=== PATIENT | female | born 1970 | race Caucasian/White ===

== ENCOUNTER → 2016-05-21 | Outpatient (CLI) | payer BC | END | disposition home or self-care (01) | LOC: MW.LAB 09:48 | PROVIDERS: ATTEND Nurse Practitioner Family | DX: R10.10 Upper abdominal pain, unspecified (principal) | CPT/HCPCS: 81001; 82272; 83630; 87046; 87324; 87328; 87329; 87338; 87899 ==

== ENCOUNTER 2021-07-22 09:28 | Day surgery (SDC) | payer BC ==
[~2021-07-22 09:28] MED LIST: Lactated Ringers 1,000 ML IV SCH; Propofol 200 MG/20 ML SDV ONE; fentaNYL 100 MCG/2 ML SDV ONE
[2021-07-22] MEDS ORDERED: Propofol 200 MG/20 ML SDV ONE (10:06)
[2021-07-22] MEDS ORDERED: Lactated Ringers 1,000 ML IV SCH (11:45)
== END 2021-07-22 12:31 | disposition home or self-care (01) ==
LOC: MW.SDS 09:28
PROVIDERS: ATTEND Surgery
DX: R19.4 Change in bowel habit (principal); E03.9 Hypothyroidism, unspecified; F41.9 Anxiety disorder, unspecified; F51.05 Insomnia due to other mental disorder; G43.909 Migraine, unspecified, not intractable, without status migrainosus; Z88.5 Allergy status to narcotic agent; Z79.899 Other long term (current) drug therapy; Z87.19 Personal history of other diseases of the digestive system; Z98.890 Other specified postprocedural states
CPT/HCPCS: 45378; 81025; J2704; J3010; J7120; 00812

== ENCOUNTER 2025-02-03 14:56 | Emergency (ER) | payer BC ==
[2025-02-03] MEDS: Ketorolac 30 MG/ML SDV IVPUSH ONE (16:34)
[2025-02-03] MEDS: diphenhydrAMINE 50 MG/ML SDV IVPUSH ONE (16:34)
[2025-02-03] MEDS: Ondansetron 4 MG/2 ML SDV IVPUSH ONE (16:34)
== END 2025-02-03 17:52 | disposition home or self-care (01) ==
LOC: MW.ED 14:56
DX: G43.909 Migraine, unspecified, not intractable, without status migrainosus (principal); Z88.5 Allergy status to narcotic agent; Z79.899 Other long term (current) drug therapy
CPT/HCPCS: 96361; 96374; 96375; 99283; J1200; J1885; J2405; J2765; J7030